=== PATIENT | female | born 1965 | race Two or more races ===

== ENCOUNTER 2021-12-10 12:04 | Emergency (ER) | payer BC ==
[~2021-12-10] VITALS: Ht 154.9 cm; Wt 63.5 kg
--- NOTE | 2021-12-10 12:14 | NUR ---
To ER bed 9, c/o of head laceration not actively bleeding, s/p "I fell down from a kitchen ladder", denies LOC, aaox3, breathing even and non labored, awaiting md orders
--- NOTE | 2021-12-10 12:47 | NUR ---
BACK FROM CT
[2021-12-10] MEDS ORDERED: LIDOCAINE 1% INJ 50 ML MDV IJ ONE (13:00)
[2021-12-10] MEDS ORDERED: BACI/NEOM/POLY B OINT PKT 1 UDPKT PACKET TP ONE (13:00)
[2021-12-10] MEDS ORDERED: IBUP-1955 PO (14:19)
--- NOTE | 2021-12-10 14:25 | NUR ---
DR CACERES AT BEDSIDE FOR LAC REPAIR
[2021-12-10] MEDS ORDERED: TDAP [DIPH/PERTUSSIS/TET] 0.5 ML VIAL IM ONE ×2 (14:29→14:30)
[2021-12-10 14:38] VITALS: BP 136/84
--- NOTE | 2021-12-10 14:38 | NUR ---
Patient discharged to home in stable condition. Written and verbal after care instructions given. Patient verbalizes understanding of instruction.
== END 2021-12-10 14:39 | disposition home or self-care (01) ==
LOC: ER 12:16
DX: S01.01XA Laceration without foreign body of scalp, initial encounter (principal); R51.9 Headache, unspecified; E78.5 Hyperlipidemia, unspecified; E78.00 Pure hypercholesterolemia, unspecified; Z88.2 Allergy status to sulfonamides; W11.XXXA Fall on and from ladder, initial encounter; Y93.89 Activity, other specified; Y92.89 Other specified places as the place of occurrence of the external cause; Y99.8 Other external cause status
CPT/HCPCS: 70450-TC; 90715